=== PATIENT | male | born 1995 | race Caucasian/White ===

== ENCOUNTER 2017-08-03 11:42 | Emergency (ER) | payer SELFPAY ==
[2017-08-03] MEDS: AZITHROMYCIN 250 MG TAB PO (14:57)
[2017-08-03] MEDS: CEFTRIAXONE 250 MG INJ IM (14:58)
[2017-08-03 15:57] LABS: URINE BLOOD (Dip) POC Trace-intact (NEGATIVE); URINE GLUCOSE (Dip) POC Negative (NEGATIVE); URINE KETONES (Dip) POC Negative (NEGATIVE); URINE LEUKOCYTE EST (Dip) POC 3+ (NEGATIVE); URINE NITRITE (Dip) POC Negative (NEGATIVE); URINE TOTAL PROTEIN POC Negative (NEGATIVE)
== END 2017-08-03 17:38 | disposition home or self-care (01) ==
LOC: FTE 11:42
DX: N39.0 Urinary tract infection, site not specified (principal); Z20.2 Contact with and (suspected) exposure to infections with a predominantly sexual mode of transmission
CPT/HCPCS: 81003; 87591; 96372; 99284-25